=== PATIENT | female | born 1975 ===

== ENCOUNTER 2019-07-10 11:44 | Inpatient (IN) ==
[2019-07-10] MEDS ORDERED: IMODIUM PO PRN ×2 (12:50)
[2019-07-10] MEDS ORDERED: ZOFRAN IV PRN (12:50)
[2019-07-10] MEDS ORDERED: MAALOX PLUS LIQUID PO PRN (12:50)
[2019-07-10] MEDS ORDERED: ZOFRAN IM PRN (12:50)
[2019-07-10] MEDS ORDERED: NICOTINE GUM BUCCAL PRN (12:50)
[2019-07-10] MEDS ORDERED: TYLENOL PO PRN (12:50)
[2019-07-10] MEDS ORDERED: ZOFRAN ODT PO PRN (12:50)
[2019-07-10] MEDS ORDERED: TUBERSOL ID ONE (12:50)
[2019-07-10] MEDS ORDERED: D5W 1,000 ML IV PRN (12:50)
[2019-07-10] MEDS ORDERED: DESYREL PO PRN (12:50)
[2019-07-10] MEDS ORDERED: SENOKOT PO PRN (12:50)
[2019-07-10] MEDS ORDERED: DULCOLAX PR PRN (12:50)
[2019-07-10] MEDS ORDERED: PHENOBARBITAL IV PRN (12:50)
[2019-07-10 13:05] LABS: URINE SOURCE CLEAN CATCH
[2019-07-10 13:10] LABS: BILIRUBIN URINE NEGATIVE (NEGATIVE); BLOOD URINE NEGATIVE (NEGATIVE); COLOR STRAW; GLUCOSE URINE NEGATIVE (NEGATIVE); KETONE URINE NEGATIVE (NEGATIVE); LEUKOCYTES URINE NEGATIVE (NEGATIVE); NITRITE URINE NEGATIVE (NEGATIVE); PROTEIN URINE NEGATIVE (NEGATIVE); SP GRAVITY URINE 1.005; TURBIDITY URINE CLEAR (CLEAR); UROBILINOGEN URINE NORMAL (NORMAL)
[2019-07-10 13:11] LABS: UR EPITHELIAL CELLS <10 /HPF (<10); URINE BACTERIA NEGATIVE /HPF; URINE RBC <10 /HPF (<10); URINE WBC <10 /HPF (<10)
[2019-07-10] MEDS ORDERED: ATARAX PO PRN (13:11)
[2019-07-10] MEDS ORDERED: SALINE LOCK IV FLUID XX ONE (13:11)
[2019-07-10] MEDS ORDERED: BENTYL PO PRN (13:11)
[2019-07-10 13:17] LABS: UR AMPHETAMINES QUAL NONE DETECTED (NONE DETECT); UR BARBITUATES QUAL NONE DETECTED (NONE DETECT); UR BENZODIAZEPIN QUAL NONE DETECTED (NONE DETECT); UR CANNABINOIDS QUAL NONE DETECTED (NONE DETECT); UR COCAINE QUAL PRESUMPTIVE POSITIVE (NONE DETECT); UR METHADONE QUAL NONE DETECTED (NONE DETECT); UR METHAMPHETAMINE QUAL NONE DETECTED (NONE DETECT); UR OPIATES QUAL NONE DETECTED (NONE DETECT); UR OXYCODONE QUAL NONE DETECTED (NONE DETECT); UR PCP QUAL NONE DETECTED (NONE DETECT); UR PROPOXYPHENE QUAL NONE DETECTED (NONE DETECT); UR TCA QUAL NONE DETECTED (NONE DETECT)
[2019-07-10] MEDS ORDERED: LIBRIUM PO SCH (13:30)
[2019-07-10 13:45] LABS: HEMATOCRIT 41.2 % (37.0-47.0); HEMOGLOBIN 13.5 g/dL (12.0-16.0); MCH 28.5 PG (27-31); MCHC 32.8 g/dL (33-37); MCV 86.9 FL (81-99); MPV 8.4 FL (7.4-10.4); RBC 4.74 XMIL (4.2-5.4); RDW 14.4 % (11.5-14.5); WBC 8.85 X1000 (4.8-10.8)
[2019-07-10] MEDS ORDERED: FLU VACCINE IM ONE (14:02)
[2019-07-10] MEDS ORDERED: PNEUMOVAX 23 IM ONE (14:05)
[2019-07-10 14:09] LABS: AGAP 14; ALBUMIN 4.5 g/dL (3.5-5.0); ALKALINE PHOSPHATASE 61 U/L (32-104); AMYLASE 42 U/L (20-200); BUN 10 mg/dL (8-22); CHLORIDE 101 mmol/L (98-107); COSMO 280; CREATININE 0.6 mg/dL (0.5-0.9); ESTIMATED GFR > 60; GLUCOSE 87 mg/dL (70-104); GOT 30 U/L (10-30); GPT 22 U/L (10-36); LIPASE 36 U/L (13-60); POTASSIUM 3.8 mmol/L (3.5-5.1); SODIUM 141 mmol/L (136-145); TCO2 26 mmol/L (25-35)
[2019-07-10] MEDS: NICODERM PATCH TD PRN (14:13)
[2019-07-10] MEDS: LIBRIUM PO SCH ×2 (14:13→19:54)
[2019-07-10 14:19] LABS: INR 1.04; PROTIME 14.1 Seconds (11.0-16.0)
[2019-07-10] MEDS ORDERED: M.V.I.-12 10 ML, FOLIC ACID 1 MG, MAGNESIUM SULFATE 1 GM, THIAMINE 100 MG in NS 1,000 ML IV ONE (15:00)
[2019-07-10] MEDS: ROBAXIN PO PRN (17:36)
[2019-07-10] MEDS: MOTRIN PO PRN (18:08)
[2019-07-10] MEDS: SEROQUEL PO PRN (23:22)
[2019-07-11] MEDS: LIBRIUM PO SCH ×4 (01:05→19:00)
[2019-07-11] MEDS: PROTONIX PO SCH ×2 (06:15→20:36)
[2019-07-11] MEDS: FOLIC ACID PO SCH (11:25)
[2019-07-11] MEDS: THERA M PLUS PO SCH (11:26)
[2019-07-11] MEDS: VITAMIN B-1 PO SCH (11:27)
[2019-07-11] MEDS: NICODERM PATCH TD PRN (14:45)
[2019-07-11] MEDS: SEROQUEL PO PRN (20:29)
--- NOTE | 2019-07-11 21:40 | PROGRESS NOTE ---
DATE: 07/11/2019 SUBJECTIVE: The patient notes that she is feeling a little bit better. Denies any fever or chills. Denies cough. PHYSICAL EXAMINATION: Vital signs reviewed. The patient is asleep, but easily awakened. HEENT: Normocephalic. Neck: Supple. CV: Regular rate. Chest: Clear. Abdomen: Soft. Extremities: Moves all extremities. ASSESSMENT: 1. Nausea and vomiting. 2. Abdominal pain. 3. Myalgias. 4. Paresthesias. 5. Paroxysmal sweating. 6. Alcohol abuse withdrawal and stabilization. PLAN: We will continue the patient in the hospital. We will continue high-dose Librium taper. Continue counseling. Further orders to follow. cc: Gurjit Monique MD
--- NOTE | 2019-07-11 22:52 | HISTORY AND PHYSICAL ---
CHIEF COMPLAINT: Nausea and vomiting. HISTORY OF PRESENT ILLNESS: The patient is a 44-year-old female who presented to [facility] secondary to nausea, vomiting, abdominal pain, myalgias, tremors, paresthesias. Notes that she has been drinking heavily. She has been trying to stop, but withdrawal symptoms have become too severe. SOCIAL HISTORY: Patient is . She is currently employed. Lives at home in [place], [place]. PAST MEDICAL HISTORY: Significant for depression, anxiety, history of blackouts due to alcohol. MEDICATIONS: Zoloft 50, Wellbutrin 300, omeprazole. ALLERGIES: No known drug allergies. REVIEW OF SYSTEMS: CIWA score of 37 secondary to nausea, vomiting, abdominal pain, tremors, myalgias, paresthesias, paroxysmal sweating. Notes that she has had blackouts that were alcohol related. Denies any fevers, chills, headaches, blurred vision. Denies any focalized numbness, tingling, weakness in her extremities. Denies dysuria, frequency, or urgency. Denies hesitancy, polyuria or polydipsia. Denies any skin rashes, weight loss or weight gain. FAMILY HISTORY: Noncontributory. SUBSTANCE ABUSE HISTORY: The patient was in treatment facility at [facility] in [place] for 30 days. Remained sober for 2 months. She was in a private counselor in 2019, did not remain sober. Alcohol has caused relationship problems and financial problems. States that she will stay drunk all day long trying to work and it has become too much. Noted, she started drinking as early as age 8. Currently drinks up to a half a gallon of vodka a day. Started crack cocaine in her 30s. Has not used often, although, recently she has been using it up to 2 to 3 times a day. Started smoking at age 7. Currently vapes for the past 4 years. Was smoking up to 2 packs a day and high school until 2 years. PHYSICAL EXAMINATION: VITAL SIGNS: Reviewed and stable. GENERAL: Patient is awake, alert. She is in no current respiratory distress. HEENT: Normocephalic. NECK: Supple. CARDIOVASCULAR: Regular rate. CHEST: Clear. ABDOMEN: Soft. EXTREMITIES: Moves all extremities. NEUROLOGIC: No focal changes. SKIN: Warm, dry, no rashes. She is awake, alert, but she is fidgety, anxious, unable to sit still, has mild tremors with her arms at rest. ASSESSMENT: 1. Nausea and vomiting. 2. Abdominal pain. 3. Myalgias. 4. Paresthesias. 5. Paroxysmal sweating. 6. Alcohol abuse withdrawal and stabilization. 7. Tremors. PLAN: We will admit the patient hospital, place her on high-dose Librium taper,. Begin counseling and will follow. Discussed with patient the importance of further inpatient treatment as well as medication assisted therapy, i.e. naltrexone versus Vivitrol. cc: Gurjit Monique MD
[2019-07-12] MEDS: LIBRIUM PO SCH ×4 (01:32→21:37)
[2019-07-12] MEDS: PROTONIX PO SCH (06:19)
[2019-07-12] MEDS ORDERED: M.V.I.-12 10 ML, FOLIC ACID 1 MG, MAGNESIUM SULFATE 1 GM, THIAMINE 100 MG in NS 1,000 ML IV ONE (08:00)
[2019-07-12] MEDS: FOLIC ACID PO SCH (08:25)
[2019-07-12] MEDS: VITAMIN B-1 PO SCH (08:25)
[2019-07-12] MEDS: THERA M PLUS PO SCH (08:25)
[2019-07-12] MEDS: MOTRIN PO PRN (21:37)
[2019-07-12] MEDS: ROBAXIN PO PRN (21:37)
[2019-07-12] MEDS: SEROQUEL PO PRN (21:38)
--- NOTE | 2019-07-13 00:27 | PROGRESS NOTE ---
DATE: 07/12/2019 SUBJECTIVE: Patient notes that she is feeling a little bit better. She is having less wheezing, less coughing, less shortness of breath, less muscle aches, less fatigue. She is still having some mild tremors. PHYSICAL EXAMINATION: Vital Signs: Reviewed. General: She is awake, alert, she is oriented. No respiratory distress. HEENT: Normocephalic. Neck: Supple. Cardiovascular: Regular rate and rhythm. Chest: Clear, nonlabored. Abdomen: Soft, nondistended. Extremities: Moves all extremities. ASSESSMENT: 1. Nausea, vomiting. 2. Abdominal pain. 3. Myalgias. 4. Paresthesias. 5. Paroxysmal sweating. 6. Tremors. 7. Alcohol abuse withdrawal and stabilization. CONSULTATIONS: None. PLAN: The patient will continue in the hospital. Continue to follow. Continue to wean Librium. We will continue counseling. Further orders as needed. cc: Gurjit Monique MD
[2019-07-13] MEDS: LIBRIUM PO SCH ×5 (00:29→21:49)
[2019-07-13] MEDS: PROTONIX PO SCH (06:20)
[2019-07-13] MEDS: VITAMIN B-1 PO SCH (09:54)
[2019-07-13] MEDS: THERA M PLUS PO SCH (09:54)
[2019-07-13] MEDS: FOLIC ACID PO SCH (09:54)
[2019-07-13] MEDS: ROBAXIN PO PRN (20:16)
--- NOTE | 2019-07-13 21:36 | PROGRESS NOTE ---
DATE: 07/13/2019 SUBJECTIVE: The patient was sleeping. She has no new complaints. PHYSICAL EXAMINATION: Vital Signs: Reviewed. General: She is easily awakened. She is alert. HEENT: Normocephalic. Neck: Supple. Cardiovascular: Regular rate. Chest: Clear. Abdomen: Soft. Extremities: Moves all extremities. Neurologic: No changes. ASSESSMENT: 1. Nausea and vomiting. 2. Abdominal pain. 3. Myalgias. 4. Paresthesias. 5. Paroxysmal sweating. 6. Alcohol abuse withdrawal and stabilization. PLAN: We will continue patient in the hospital. Continue to wean Librium. Hopefully, she can be ready for discharge over the next day or 2. cc: Gurjit Monique MD
[2019-07-14] MEDS: LIBRIUM PO SCH (06:20)
[2019-07-14] MEDS: PROTONIX PO SCH (06:21)
[2019-07-14 08:15] VITALS: BP 115/72
[2019-07-14] MEDS: FOLIC ACID PO SCH (09:36)
[2019-07-14] MEDS: VITAMIN B-1 PO SCH (09:36)
[2019-07-14] MEDS: THERA M PLUS PO SCH (09:36)
--- NOTE | 2019-07-15 22:03 | DISCHARGE SUMMARY ---
ADMISSION DATE: 07/10/2019 DISCHARGE DATE: 07/14/2019 DISCHARGE DIAGNOSIS: 1. Nausea, vomiting. 2. Abdominal pain. 3. Myalgias. 4. Paresthesias. 5. Paroxysmal sweating. 6. Alcohol abuse, withdrawal and stabilization. CONSULTATIONS: None. PROCEDURES: None. BRIEF HOSPITAL COURSE: The patient is a 44-year-old female who presented to [facility] secondary to nausea, vomiting, abdominal pain, myalgias, paresthesias. She was treated in the usual fashion, placed on high-dose Librium taper. She had counseling each day by myself. On discharge, she is awake, alert. She is in no distress. DISPOSITION: Patient will be discharged home. She will follow up outpatient with [facility]. She will continue to follow their plan. TIME SPENT: Greater than 30 minutes was spent in total care on discharge planning. The patient will not be discharged home with any medications as she has totally weaned off Librium. cc: Gurjit Monique MD
== END 2019-07-14 10:28 | disposition home or self-care (01) | DRG 897 ==
LOC: P.DIRADM 11:44 → P.MEDSURG 12:09
PROVIDERS: ADMIT Family Medicine; ATTEND Family Medicine